=== PATIENT | female | born 1990 | race Caucasian/White ===

== ENCOUNTER 2019-12-11 14:41 | Emergency (ER) | payer SELFPAY ==
[~2019-12-11] VITALS: Ht 160 cm; Wt 70.9 kg
[2019-12-11 14:46] VITALS: TEMP 97.4
[2019-12-11 15:39] LABS: BASO # 0.1 (0.0-0.2); BASO % 0.6 % (0.0-2.0); EOS # 0.4 (0.0-0.7); EOS % 1.7 % (0-4.0); GRAN # 19.3 (1.4-6.5); GRAN % 82.9 % (42.2-75.2); HEMATOCRIT 41.1 % (37.0-47.0); HEMOGLOBIN 13.5 g/dl (12.5-16.0); LYMPH # 2.3 (1.2-3.4); MEAN CELL VOLUME 90 fl (80.0-100.0); MEAN CORPUSCULAR HEMOGLOBIN 30 pg (27.0-31.0); MEAN CORPUSCULAR HGB CONC 33 g/dl (33.0-37.0); MEAN PLATELET VOLUME 10.6 fl (7.4-10.4); MONO % 4.2 % (1.7-9.3); PLATELET COUNT 304 K/mm3 (130-400); RED BLOOD COUNT 4.55 M/mm3 (4.10-5.30); REDCELL DISTRIBUTION WIDTH-CV 12.9 % (11.5-14.5)
[2019-12-11 15:48] LABS: COLLECTION METHOD CLEAN CATCH
[2019-12-11 15:55] LABS: ALANINE AMINOTRANSFERASE 17 U/L (9-52); ALBUMIN 4.7 gm/dL (3.5-5.0); ALKALINE PHOSPHATASE 125 U/L (50-136); ANION GAP 10 mmol/L (7-16); AST,SGOT 20 U/L (15-37); BILIRUBIN,TOTAL 0.5 mg/dL (0.0-1.0); BLOOD UREA NITROGEN 13 mg/dL (7-17); C-REACTIVE PROTEIN 4.9 mg/dL (0.0-0.9); CALCIUM 9.7 mg/dL (8.4-10.2); CARBON DIOXIDE 26 mmol/L (22-30); CHLORIDE 103 mmol/L (98-107); CREATININE, serum 0.79 (0.52-1.25); GLUCOSE 96 mg/dL (74-106); LIPASE 72 U/L (23-300); POTASSIUM 4.9 mmol/L (3.4-5.0); SODIUM 139 mmol/L (137-145); TOTAL PROTEIN 8.4 gm/dL (6.4-8.2)
[2019-12-11 16:02] LABS: MUCOUS Present /lpf; PH 5 (5-8); URINE APPEARANCE Cloudy; URINE BACTERIA Rare /hpf; URINE BILIRUBIN Negative (NEGATIVE); URINE BLOOD 2+ (NEGATIVE); URINE COLOR Yellow; URINE GLUCOSE Negative (NEGATIVE); URINE KETONE Negative (NEGATIVE); URINE LEUKOCYTE ESTERASE 1+ (NEGATIVE); URINE NITRATE Negative (NEGATIVE); URINE PROTEIN(semi-quant) 1+ (NEGATIVE); URINE UROBILINOGEN Negative (NEGATIVE)
[2019-12-11 16:03] LABS: TROPONIN-I < 0.012 ng/mL (0.000-0.035)
[2019-12-11 16:40] LABS: COLLECTION METHOD CLEAN CATCH
[2019-12-11 16:48] LABS: MUCOUS Present /lpf; PH 6 (5-8); URINE APPEARANCE Clear; URINE BACTERIA Rare /hpf; URINE BILIRUBIN Negative (NEGATIVE); URINE BLOOD 1+ (NEGATIVE); URINE COLOR Yellow; URINE GLUCOSE Negative (NEGATIVE); URINE KETONE Negative (NEGATIVE); URINE LEUKOCYTE ESTERASE Negative (NEGATIVE); URINE NITRATE Negative (NEGATIVE); URINE PROTEIN(semi-quant) Negative (NEGATIVE); URINE RBC 0-2 /hpf; URINE UROBILINOGEN Negative (NEGATIVE)
[2019-12-11] MEDS ORDERED: ZITHROMAX 250M250 MG PO (17:30)
[2019-12-11] MEDS ORDERED: OMNICEF 300MG300 MG PO (17:30)
[2019-12-11 18:34] VITALS: BP 112/81; PULSE 102
== END 2019-12-11 18:34 | disposition home or self-care (01) ==
LOC: COL.ER 14:41 → EDBD 14:43 → COL.ER 14:43
PROVIDERS: Emergency Medicine
DX: J98.11 Atelectasis (principal)
CPT/HCPCS: J0696; J7030; Q9967

== ENCOUNTER 2020-01-03 13:02 | Emergency (ER) | payer BC ==
[~2020-01-03] VITALS: Ht 160 cm; Wt 70.5 kg
[~2020-01-03 13:02] MED LIST: OMNICEF 300MG300 MG PO; ZITHROMAX 250M250 MG PO
[2020-01-03] MEDS ORDERED: PROAIR HFA0.09 MG/AC IH (15:13)
[2020-01-03 15:20] VITALS: BP 111/76; PULSE 82; TEMP 97.6
== END 2020-01-03 15:20 | disposition home or self-care (01) ==
LOC: COL.ER 13:02
DX: R05 Cough (principal)

== ENCOUNTER → 2020-09-10 | Outpatient (CLI) | payer BC ==
[~2020-09-10] MED LIST changes: +PROAIR HFA0.09 MG/AC IH
== END ==
LOC: COL.RAD 15:12
DX: R10.11 Right upper quadrant pain (principal)